=== PATIENT | male | born 1985 | race American Indian/Alaskan Native ===

== ENCOUNTER 2019-10-16 16:13 | Emergency (ER) | payer SELFPAY | END 2019-10-16 16:17 | disposition left against medical advice (07) | LOC: ED 16:13 | DX: R10.9 Unspecified abdominal pain (principal); Z53.21 Procedure and treatment not carried out due to patient leaving prior to being seen by health care provider ==

== ENCOUNTER 2019-10-22 10:56 | Emergency (ER) | payer SELFPAY ==
[2019-10-22 11:08] VITALS: BP 150/78
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
== END 2019-10-22 11:58 | disposition left against medical advice (07) ==
LOC: ED 10:56
DX: Z48.02 Encounter for removal of sutures (principal)